=== PATIENT | female | born 1975 | race African-American/Black ===

== ENCOUNTER 2017-06-28 09:26 | Emergency (ER) | payer MEDICAID, OTHER ==
[~2017-06-28] VITALS: Ht 160 cm; Wt 50.0 kg
[2017-06-28] MEDS ORDERED: TRAM50TA4 PO (09:35)
[2017-06-28] MEDS ORDERED: METHOCARBAMOL 500 MG TABLET PO ONE (11:00)
[2017-06-28] MEDS ORDERED: IBUPROFEN 800 MG TABLET PO ONE (11:00)
[2017-06-28 11:44] VITALS: BP 118/67
== END 2017-06-28 11:49 | disposition home or self-care (01) ==
LOC: EMS 09:27
DX: S29.9XXA Unspecified injury of thorax, initial encounter (principal); S19.9XXA Unspecified injury of neck, initial encounter; J45.909 Unspecified asthma, uncomplicated; F17.210 Nicotine dependence, cigarettes, uncomplicated; V43.52XA Car driver injured in collision with other type car in traffic accident, initial encounter; Y93.89 Activity, other specified; Y92.89 Other specified places as the place of occurrence of the external cause; Y99.8 Other external cause status
CPT/HCPCS: 99283

== ENCOUNTER 2019-10-04 18:16 | Emergency (ER) | payer MEDICAID, OTHER ==
[~2019-10-04] VITALS: Ht 160 cm; Wt 56.4 kg
[~2019-10-04 18:16] MED LIST: TRAM50TA4 PO
[2019-10-04] MEDS ORDERED: ESCI-8 PO (18:20)
[2019-10-04] MEDS ORDERED: PROPARACAINE HCL 0.5% 15 ML OPHTHALMIC SOLUTION OU ONE (19:30)
[2019-10-04] MEDS ORDERED: FLUORESCEIN SODIUM 1 MG STRIP ONE (19:43)
[2019-10-04] MEDS ORDERED: PERTUSS(ACELL),DIPH,TET VAC/PF 0.5 ML VIAL IM ONE (20:15)
[2019-10-04 20:41] VITALS: BP 121/72
== END 2019-10-04 20:49 | disposition home or self-care (01) ==
LOC: EMS 18:16
DX: S01.112A Laceration without foreign body of left eyelid and periocular area, initial encounter (principal); H11.32 Conjunctival hemorrhage, left eye; F17.210 Nicotine dependence, cigarettes, uncomplicated; Z79.899 Other long term (current) drug therapy; W22.8XXA Striking against or struck by other objects, initial encounter; Y93.89 Activity, other specified; Y92.89 Other specified places as the place of occurrence of the external cause; Y99.8 Other external cause status
CPT/HCPCS: 12013; 90471; 90715